=== PATIENT | male | born 1980 | race Caucasian/White ===

== ENCOUNTER → 2020-08-03 08:05 | Outpatient (BNVA) | payer OTHER, SELFPAY | PROVIDERS: PCP Internal Medicine; Visit Provider Nurse Practitioner Family ==

== ENCOUNTER 2020-12-03 12:20 | Day surgery (SDC) | payer OTHER, SELFPAY ==
[2020-11-29 11:49] VITALS: BMI 31.2
--- NOTE | 2020-12-01 10:45 | P.CONAN_ITS ---
Documented by User: Mansi Lindsay 12/01/20 10:46 HPI - Anesthesia Eval Consult details Narrative: 40yo M for Bilateral Medial Branch Block L2-L3-L4 PMF Active Problems Active Problems: All Active Problems (Updated 11/29/20 @ 11:50 by Mulu Mirza) Spondylosis of lumbar region without myelopathy or radiculopathy (Acute) Past Medical History Medical History HTN (hypertension) Low back pain Neck pain Surgical History Surgical History (Updated 12/03/20 @ 13:35 by Yolie Taveras, RN) History of arthroscopy of right shoulder Social History Social History Patient Tobacco Use Status: Current someday Tobacco user Use of substances other than those prescribed or required for medical reasons: No Are you DNR?: No Advance Directives: No Advance Directives Information Provided: Yes Meds Allergies Allergy/AdvReac Type Severity Reaction Status Date / Time No Known Drug Allergies Allergy NKDA Verified 12/03/20 13:35 Home Medications Medication Instructions Recorded Confirmed Last Taken Type acetaminophen 325 mg tablet 650 mg PO Q6H PRN 08/03/20 11/29/20 Unknown History naproxen sodium 220 mg capsule 440 mg PO Q8H cap 08/03/20 11/29/20 Unknown History lisinopril 1 tab PO BEDTIME 11/29/20 11/29/20 Unknown History Exam Exam Date and Time: December 01, 2020 1045 Height,Weight and Vital Signs: Height 6 ft 1 in Weight 107.501 kg Assessment and Plan Assessment Anesthesia Assessment: Chart Reviewed Documented by User: Tori Mejia 12/03/20 17:23 [facility], [facility] Past Medical History Medical History HTN (hypertension) Low back pain Neck pain Family History Family history of problems with anesthesia: No Surgical History Surgical History (Updated 12/03/20 @ 13:35 by Yolie Taveras, RN) History of arthroscopy of right shoulder History of Problems with Anesthesia: No ('Woke up' during 1 of his pain injections) Social History Social History Patient Tobacco Use Status: Current someday Tobacco user Use of substances other than those prescribed or required for medical reasons: No Are you DNR?: No Advance Directives: No Advance Directives Information Provided: Yes Meds Allergies Allergy/AdvReac Type Severity Reaction Status Date / Time No Known Drug Allergies Allergy NKDA Verified 12/03/20 13:35 Home Medications Medication Instructions Recorded Confirmed Last Taken Type acetaminophen 325 mg tablet 650 mg PO Q6H PRN 08/03/20 11/29/20 Unknown History naproxen sodium 220 mg capsule 440 mg PO Q8H cap 08/03/20 11/29/20 Unknown History lisinopril 1 tab PO BEDTIME 11/29/20 11/29/20 Unknown History Exam Height,Weight and Vital Signs: Vital Signs Temp Pulse Resp BP Pulse Ox 12/03/20 13:51 97.6 F 67 18 136/89 97 Airway Mallampati Class: II TM Dist: >3cm Neck ROM: Limited Heart: RRR Lungs: CTAB Assessment and Plan Assessment Anesthesia Assessment: Anesthesia Plan Discussed and Chart Reviewed Final Anesthetic Review NPO: Yes ASA Class: II Final Preanesthetic Review: No Changes in Pt Med Stat, Meds/Allgs Chart Reviewed , Consent Obtained/Reviewed and Anes Risks/Benef Reviewed Patient Risk: Low Procedure Risk: Low Assessment/Block/Sedation in SS: Assess/Block/Sedation-SS Anesthetic Plan Anesthetic Plan: MAC: Disposition: Standard PACU
--- NOTE | ~2020-12-03 | FL_ITS ---
EXAMINATION: XR FLUOROSCOPY WITH IMAGES CLINICAL INFORMATION: Low back pain. For medial branch block. COMPARISON: None. TECHNIQUE: Fluoroscopy performed by Dr. Taylor. Fluoroscopy time: 0.8 minutes DAP: 9.34 mGycm2 Images: 6 FINDINGS: There are 6 images obtained revealing bilateral needle positioned above the L3, L4 and L5 pedicles and lateral to the superior facets with contrast opacifying the soft tissues. FL/FL guidance in OR IMPRESSION: Fluoroscopy was provided to referring physician for lumbar medial branch blocks.
[2020-12-03 13:51] VITALS: BP 136/89; PULSE 67; RESP 18; TEMP 36.4; O2SAT 97
[2020-12-03] MEDS: Lactated Ringers 1,000 ML 100 ML IVCONT (14:11)
--- NOTE | 2020-12-03 16:26 | PM.OP ---
Brief Operative Note Date of Service: 12/03/20 Pre-op diagnosis: Spondylosis lumbar spine Post-op diagnosis: same Procedure: L2-L3 L4 medial branch block bilateral Marcaine no steroids Surgeon: Musa Taylor MD Anesthesia: MAC Was an Fur Dry Cleaner Hand used for this Procedure?: No Estimated blood loss (mL): 0 Condition: stable Disposition: PACU
--- NOTE | 2020-12-03 16:26 | MHC.SHP ---
Pre-Procedural Eval Section A The patient is an INPATIENT: No Changes since office visit: Yes Patient answered all questions The History & Physical has been completed within 30 days and I have reviewed it.: No Section B Chief Complaint: spondylosis without myelopathy lumbar Details of Present Illness: As above Relevant Family History (Specify if Yes): No Relevant Social History: None Present Medications: see Short Stay Collaborative assessment Medical History: No relevant PMH History of Previous Operations: No relevant previous surgery Allergies: Allergies Allergy/AdvReac Type Severity Reaction Status Date / Time No Known Drug Allergies Allergy NKDA Verified 12/03/20 13:35 Review of Systems Sugical H&P ROS: Negative: Constitution, Cardiovascular, Respiratory, Neurological, Psychiatric, Hem-Onc, Allergic/Immunologic, Gastrointestinal, Genitourinary, Musculoskeletal, Integumentary, Endocrine and Eyes/Ears/Nose/Throat Exam Surgical H&P Exam: Normal: HEENT, Normal: Heart, Normal: Lungs, Normal: Extremities, Normal: Abdomen, Normal: Skin and Normal: Neurological Plan Diagnosis/Plan: Unchanged I have reviewed the history and physical and performed a pertinent physical examination on my patient. No changes have occurred unless specified.
[2020-12-03 17:42] VITALS: BP 135/86; PULSE 82; RESP 16; TEMP 36.6; O2SAT 98
[2020-12-03 17:57] VITALS: BP 142/101; PULSE 89; RESP 16; TEMP 36.6; O2SAT 99
--- NOTE | 2020-12-03 18:22 | PC.NURSE ---
OOB ABLE TAKE A FEW STEPS NO WEAKNESS OR DIZZINESS. DRESSING AT BEDSIDE. NO NAUSEA. IV REMOVED. REVIEW D/C INSTRUCTIONS
--- NOTE | 2020-12-04 12:09 | P.OP_ITS ---
Operative Note Operative Note Date of Service: 12/03/20 Narrative: Informed consent was explained to the patient. All questions were explained and answered. The patient was taken inside the operating room where she was positioned prone on the operating table. [place] [employer] [employer] monitors were applied. Patient was deeply sedated. Time-out was performed delineating correct site, side, the nature of the procedure, patient's allergy, preoperative antibiotic if needed. All operating room staff was participating in OR time-out procedure. The lower back was prepped with ChloraPrep and draped with sterile towels. Sterilely draped C-arm was brought over the operating field and sq picture of L3,L4 , L5 were delineated on the screen. Point of interest were delineated as connection of superior articular process of L3, L4, L5 vertebra bilaterally with corresponding transverse processes. The projection of the point of interest to the skin were injected with the small amount of local anesthetic lidocaine 2% 1- 1.5 cc. After that 22 gauge 3-1/2 inch spinal needle was driven sequentially to the points of interest in tunnel vision fashion. After needles gently contacted the bone at the point of interests the needle was injected with small amount of the contrast. The injection of the contrast did not demonstrate any intravascular or intrathecal spread of the contrast. After that injection of the bupivacaine 0.5%-1cc was performed at each needle location. Upon completion of the injections needle was removed and sterile Band-Aids were applied. The patient was awaken and taken outside of the operating room to recovery room where she recovered uneventfully. He went home without immediate complications.
== END 2020-12-03 18:23 | disposition home or self-care (01) ==
PROVIDERS: Visit Provider Anesthesiology
PROC: (CPT 64493; principal; 2020-12-03 14:10)
DX: M47.816 Spondylosis without myelopathy or radiculopathy, lumbar region (principal); F41.9 Anxiety disorder, unspecified; I10 Essential (primary) hypertension; Z79.899 Other long term (current) drug therapy
CPT/HCPCS: 64493; 64494; J2250; Q9967

== ENCOUNTER → 2020-12-08 10:39 | Outpatient (BNVA) | payer OTHER, SELFPAY | PROVIDERS: PCP Internal Medicine; Visit Provider Nurse Practitioner Family ==

== ENCOUNTER 2021-03-03 10:22 | Day surgery (SDC) | payer OTHER, SELFPAY ==
--- NOTE | 2021-03-02 11:32 | HO.ANESPROP2 ---
Documented by User: Mansi Lindsay NP 03/02/21 11:32 HPI - Anesthesia Eval Consult details Narrative: 40yo M for Bilateral Medial Branch Radiofrequency AB,L2-L4 s/p same 11/2020 with MAC PMFSH Active Problems Active Problems: All Active Problems (Updated 11/29/20 @ 11:50 by Mulu Mirza RN) Spondylosis of lumbar region without myelopathy or radiculopathy (Acute) Past Medical History Medical History HTN (hypertension) Low back pain Neck pain Family History Family history of problems with anesthesia: No Surgical History Surgical History History of arthroscopy of right shoulder History of Problems with Anesthesia: No ('Woke up' during 1 of his pain injections) Social History Social History Patient Tobacco Use Status: Current someday Tobacco user Tobacco use type: Cigar Use of substances other than those prescribed or required for medical reasons: No Are you DNR?: No Advance Directives: No Advance Directives Information Provided: Yes Advance Directives on File: No Recently lost weight without trying: No Nutrition Risks: No Nutritional Risk Meds Allergies Allergy/AdvReac Type Severity Reaction Status Date / Time No Known Drug Allergies Allergy NKDA Verified 12/08/20 10:40 Home Medications Medication Instructions Recorded Confirmed Last Taken Type acetaminophen 325 mg tablet 650 mg PO Q6H PRN 08/03/20 12/08/20 Unknown History (Tylenol) naproxen sodium 220 mg capsule 440 mg PO Q8H cap 08/03/20 12/08/20 Unknown History (Aleve) lisinopril 5 mg tablet 1 tab PO BEDTIME 11/29/20 12/08/20 Unknown History oxycodone 5 mg tablet 1 tab PO Q6H PRN 03/03/21 03/03/21 03/02/21 23:00 History Exam Exam Date and Time: March 02, 2021 1132 Assessment and Plan Assessment Anesthesia Assessment: Chart Reviewed Final Anesthetic Review Family History of Problems with Anesthesia: No History of Problems with Anesthesia: No ('Woke up' during 1 of his pain injections) Documented by User: Debbie Bustillos MD 03/03/21 12:38 PMFSH Past Medical History Medical History HTN (hypertension) Low back pain Neck pain Surgical History Surgical History History of arthroscopy of right shoulder Social History Social History Patient Tobacco Use Status: Current someday Tobacco user Tobacco use type: Cigar Use of substances other than those prescribed or required for medical reasons: No Are you DNR?: No Advance Directives: No Advance Directives Information Provided: Yes Advance Directives on File: No Recently lost weight without trying: No Nutrition Risks: No Nutritional Risk Meds Allergies Allergy/AdvReac Type Severity Reaction Status Date / Time No Known Drug Allergies Allergy NKDA Verified 12/08/20 10:40 Home Medications Medication Instructions Recorded Confirmed Last Taken Type acetaminophen 325 mg tablet 650 mg PO Q6H PRN 08/03/20 12/08/20 Unknown History (Tylenol) naproxen sodium 220 mg capsule 440 mg PO Q8H cap 08/03/20 12/08/20 Unknown History (Aleve) lisinopril 5 mg tablet 1 tab PO BEDTIME 11/29/20 12/08/20 Unknown History oxycodone 5 mg tablet 1 tab PO Q6H PRN 03/03/21 03/03/21 03/02/21 23:00 History Exam Airway Mallampati Class: II TM Dist: >3cm Neck ROM: Full Loose/Missing/Broken Teeth: No Heart: RRR Lungs: CTA Assessment and Plan Assessment Anesthesia Assessment: Anesthesia Plan Discussed Final Anesthetic Review NPO: Yes ASA Class: II Final Preanesthetic Review: Meds/Allgs Chart Reviewed, Consent Obtained/Reviewed and Anes Risks/Benef Reviewed Patient Risk: Low Procedure Risk: Low Anesthetic Plan Anesthetic Plan: MAC: Disposition: Standard PACU
[2021-03-03] VITALS (7 sets, daily range): BP systolic 130–164; BP diastolic 85–105; PULSE 57–82; RESP 16–18; TEMP 36.3–36.9; O2SAT 94–98; BMI 30.3
--- NOTE | ~2021-03-03 | FL_ITS ---
EXAMINATION: XR FLUOROSCOPY WITH IMAGES CLINICAL INFORMATION: Low back pain. COMPARISON: None. TECHNIQUE: Fluoroscopy performed by Dr. Musa Taylor. Fluoroscopy time: 2.2 minutes DAP: 25.9 mGycm2 Images: 6 views. FINDINGS: There are needles positioned lateral to L3, L4 and L5 pedicles for medial branch blocks. Visualized vertebral heights, alignment and disc heights are normal. No fracture or lytic process seen. FL/FL guidance in OR IMPRESSION: Fluoroscopy was provided to Dr. Musa Taylor for pain management.
--- NOTE | 2021-03-03 10:28 | PM.OP ---
Brief Operative Note Date of Service: 03/03/21 Pre-op diagnosis: spondylosis lumbar spine Post-op diagnosis: same Procedure: RFA L2. L3. L4 MB bilateral. Surgeon: Musa Taylor MD Anesthesia: MAC Was an Pillowcase Cutter used for this Procedure?: No Estimated blood loss (mL): 3 Condition: stable Disposition: PACU
--- NOTE | 2021-03-03 10:28 | MHC.SHP ---
Pre-Procedural Eval Section A Date of Service: 03/03/21 Changes since office visit: Yes Patient answered all questions The History & Physical has been completed within 30 days and I have reviewed it.: No Section B Chief Complaint: spondylosis lumbar region Details of Present Illness: As above Relevant Family History (Specify if Yes): No Relevant Social History: None Present Medications: see Short Stay Collaborative assessment Medical History: No relevant PMH History of Previous Operations: No relevant previous surgery Allergies: Allergies Allergy/AdvReac Type Severity Reaction Status Date / Time No Known Drug Allergies Allergy NKDA Verified 12/08/20 10:40 Review of Systems Sugical H&P ROS: Negative: Constitution, Cardiovascular, Respiratory, Neurological, Psychiatric, Hem-Onc, Allergic/Immunologic, Gastrointestinal, Genitourinary, Musculoskeletal, Integumentary, Endocrine and Eyes/Ears/Nose/Throat Exam Surgical H&P Exam: Normal: HEENT, Normal: Heart, Normal: Lungs, Normal: Extremities, Normal: Abdomen, Normal: Skin and Normal: Neurological Plan Diagnosis/Plan: Unchanged I have reviewed the history and physical and performed a pertinent physical examination on my patient. No changes have occurred unless specified.
--- NOTE | 2021-03-03 10:29 | W.PM.OPN ---
Operative Note Operative Note Date of Service: 03/03/21 Narrative: Informed consent was explained to the patient. All questions were explained and answered.? The patient was taken inside of the operating room where he was positioned prone on the operating table.? Time-out was performed delineating patient's name and date of , correct site, side, the nature of the procedure, patient's allergy, preoperative antibiotic if needed.? All operating room staff was participating in OR time-out procedure.? [place] [employer] monitors were applied.? Patient was deeply sedated.? His lower back was prepped with ChloraPrep and draped with sterile towels.? Sterilely draped C-arm was brought over the operating field and sq picture of L3 L4-and L55 vertebra .? Points of interest were delineated as connection of superior articular process of L3, L4 and L5 vertebra bilaterally with corresponding transverse processes. ? The projection of the point of interest to the skin were injected with the small amount of local anesthetic lidocaine 2% 1-1.5 cc.? And after that 18 gauge 100 mm radiofrequency cannulas were driven to the point of interest in tunnel vision fashion under oblique view with assistant news director of the C-arm tilted 15? to the ipsilateral side.? After needles gently contacted the bone at the point of interests the stylets were removed from the needles and electrodes were inserted into the needles.? Electrodes were connected to the radiofrequency machine and testing was performed for the patient's motor function.? There were no pathological motor response indicating stimulation of somatic nerves.? After that electrodes were removed and each needle was injected with small amount of bupivacaine 0.5% 1-1.5 cc mixed with trace amount of Kenalog.? Upon completion of the injections the electrodes were reinserted and energy of 80 degree centigrade for 105 seconds was applied to each needle 1st on the left side and then on the right.? Upon completion of the energy application the needles were rotated 180? and energy applied with the same temperature and with the same time.? Upon completion of the injections needles were removed and sterile dressings were applied patient was awaken and taking outside of the operating room to recovery room which she recovered uneventfully.? He went home without immediate complications.
[2021-03-03] MEDS: Lactated Ringers 1,000 ML 100 ML IVCONT (11:05)
[2021-03-03] MEDS: oxyCODONE HCl Immed Release 5 MG TABLET PO (14:55)
[2021-03-03] MEDS: ondansetron HCL 4 MG/2 ML VIAL IVPUSH (14:55)
[2021-03-03] MEDS: Acetaminophen 325 MG TABLET 650 MG PO (14:56)
[2021-03-03] MEDS: fentaNYL citrate/PF 100 MCG/2 ML VIAL 50 MCG IVPUSH (15:01)
== END 2021-03-03 15:55 ==
LOC: HO.SSS 10:22
PROVIDERS: Visit Provider Anesthesiology
PROC: (CPT 64635; principal; 2021-03-03 12:30)
DX: M47.816 Spondylosis without myelopathy or radiculopathy, lumbar region (principal); M54.5 Low back pain; M54.2 Cervicalgia; I10 Essential (primary) hypertension; Z79.899 Other long term (current) drug therapy
CPT/HCPCS: 64635; 64636; J2250; J2405; J3010; J3300; Q9967

== ENCOUNTER → 2022-08-09 09:40 | Outpatient (BNVA) | payer OTHER, SELFPAY | PROVIDERS: Visit Provider Anesthesiology | DX: Z13.89 Encounter for screening for other disorder (principal) ==